=== PATIENT | male | born 1955 | race African-American/Black ===

== ENCOUNTER 2022-05-17 14:15 | Emergency (ER) | payer OTHER ==
[~2022-05-17] VITALS: Ht 175.3 cm; Wt 76.2 kg
[2022-05-17 14:40] LABS: BASOPHILS % (AUTO) 0.2 % (0.0-5.0); EOSINOPHILS % (AUTO) 0.1 % (0.0-8.0); HEMATOCRIT 25.1 % (42-54); MEAN CORPUSCULAR HEMOGLOBIN 17.8 pg (27.0-33.0); MEAN CORPUSCULAR HGB CONC 31.5 g/dL (32.0-36.0); MEAN CORPUSCULAR VOLUME 56.5 fL (79-99); MONOCYTES % (AUTO) 17.1 % (3.0-13.0); NEUTROPHILS % (AUTO) 72.6 % (40.0-77.0); NUCLEATED RED BLOOD CELLS 0.1 % (0.0-0.19); PLATELET COUNT (AUTO) 342 K/uL (130-400); RED BLOOD CELL COUNT(AUTO) 4.44 MIL/uL (4.50-6.20); RED CELL DISTRIBUTION WIDTH 23.4 % (11.0-15.5); WHITE BLOOD COUNT (AUTO) 16.7 K/uL (4.8-10.8)
[2022-05-17 14:49] LABS: CREATININE 1.5 mg/dL (0.5-1.5); POTASSIUM 3.1 mmol/L (3.5-5.1)
[2022-05-17 14:53] LABS: ALBUMIN 2.8 g/dL (3.5-5.0); TOTAL PROTEIN, SERUM 7.4 g/dL (6.0-8.3)
[2022-05-17] MEDS: PEG 3350/NA SULF,BICARB,CL/KCL 4000 ML SOLN PO SCH ×2 (14:58→15:07)
[2022-05-17] MEDS ORDERED: IOHEXOL 350 MG/ML 100ML INFUS..BTL IV ONE (15:23)
[2022-05-17] MEDS ORDERED: POTASSIUM CHLORIDE 20MEQ/10ML 10 MEQ in 0.9%NACL 50ML 50 ML IV SCH (15:30)
[2022-05-17 17:16] VITALS: BP 144/89
== END 2022-05-17 15:19 | disposition admitted as inpatient to this hospital (09) ==
LOC: EDH 14:15 → EEVIPCON 14:15 → EDH 15:19
DX: R10.9 Unspecified abdominal pain (principal); R55 Syncope and collapse; I25.10 Atherosclerotic heart disease of native coronary artery without angina pectoris; J44.9 Chronic obstructive pulmonary disease, unspecified; E78.00 Pure hypercholesterolemia, unspecified; I10 Essential (primary) hypertension; E05.90 Thyrotoxicosis, unspecified without thyrotoxic crisis or storm; Z20.822 Contact with and (suspected) exposure to COVID-19; Z98.890 Other specified postprocedural states
CPT/HCPCS: 99285; 70450; 71045; 87635; 84484; 80053; 83880; 85025; 85378; 87804 ×2; 83605; 36415; 71275; 74176; 93005; J3480; Q9967